=== PATIENT | female | born 1995 | race Two or more races ===

== ENCOUNTER 2017-07-23 16:55 | Emergency (ER) | payer MEDICAID ==
[~2017-07-23] VITALS: Ht 165.1 cm; Wt 62.1 kg
[2017-07-23 17:04] VITALS: BP 119/75
== END 2017-07-23 20:13 | disposition home or self-care (01) ==
LOC: ER 16:57
DX: S93.401A Sprain of unspecified ligament of right ankle, initial encounter (principal); X58.XXXA Exposure to other specified factors, initial encounter; Y93.01 Activity, walking, marching and hiking; Y92.89 Other specified places as the place of occurrence of the external cause; Y99.8 Other external cause status
CPT/HCPCS: 29515; 73610

== ENCOUNTER 2018-07-07 20:20 | Emergency (ER) | payer MEDICAID ==
[~2018-07-07] VITALS: Ht 162.6 cm; Wt 61.2 kg
[2018-07-07 20:37] VITALS: BP 127/68
[2018-07-07 22:06] LABS: Basophils # (auto) 0 uL; Eosinophils # (auto) 0.1 uL; Eosinophils % (auto) 0.9 % (0.0-7.0); Hemoglobin 12.5 g/dL (12.2-16.2); Mean Corpuscular Hemoglobin 24.8 pg (28.0-32.0); Monocytes # (auto) 0.7 uL; Neutrophils # (auto) 3.5 uL; Red Blood Cells 5.05 10^6/uL (4.0-5.20); White Blood Cell 5.7 10^3/uL (4.4-10.8)
[2018-07-07 22:09] LABS: Basophils % (auto) 0.4 % (0.0-2.0); Hematocrit 38.5 % (36.0-46.0); Lymphocytes # (auto) 1.4 uL; Lymphocytes % (auto) 25.2 % (10.0-50.0); Mean Corpuscular Hgb Conc. 32.5 g/dL (32.0-36.0); Mean Corpuscular Volume 76.2 fL (80.0-100.0); Monocytes % (auto) 12.3 % (0.0-12.0); Neutrophils % (auto) 61.2 % (37.0-80.0); Platelet Count (auto) 182 10^3/uL (140-450); Red Cell Distribution Width 14.1 % (11.8-14.3)
[2018-07-07 22:15] LABS: Albumin 3.5 g/dL (3.4-5.0); Calcium 8.7 mg/dL (8.5-10.1)
[2018-07-07 22:17] LABS: BUN/Creatinine Ratio 18.8
[2018-07-07 22:20] LABS: Bilirubin, Total 0.3 mg/dL (0.2-1.0); Total Protein 7.4 g/dL (6.4-8.2)
[2018-07-07 22:24] LABS: Alcohol, Urine < 3.0 mg/dL (0-5); Amphetamine Screen, Urine NEGATIVE (NEGATIVE); Barbiturate Scree,Urine NEGATIVE (NEGATIVE); Benzodiazephine Screen, Urine NEGATIVE (NEGATIVE); Cannabinoid Screen, Urine NEGATIVE (NEGATIVE); Cocaine Screen, Urine NEGATIVE (NEGATIVE); Opiate Scree,Urine NEGATIVE (NEGATIVE); Phencyclidine Screen, Urine NEGATIVE (NEGATIVE)
[2018-07-07 22:35] LABS: Urine Bacteria NONE SEEN /hpf (None Seen); Urine Blood Negative /uL (Negative); Urine Specific Gravity 1.021 (1.001-1.035); Urine WBC 10 /hpf (0 - 5)
== END 2018-07-08 00:39 | disposition left against medical advice (07) ==
LOC: ER 20:24
DX: R10.13 Epigastric pain (principal); Z53.21 Procedure and treatment not carried out due to patient leaving prior to being seen by health care provider
CPT/HCPCS: 36415; 80053; 80307; 81001; 83690; 85025